=== PATIENT | male | born 1975 | race African-American/Black ===

== ENCOUNTER 2016-12-31 10:41 | Emergency (ER) | payer OTHER ==
[2016-12-31 10:45] VITALS: BP 128/75; PULSE 74; TEMP 97.7; BMI 28.5
[2016-12-31] MEDS ORDERED: KETOROLAC TROMETHAMINE 60 MG/2 ML VIAL ONE (11:46)
[2016-12-31] MEDS ORDERED: KETOROLAC TROMETHAMINE 60 MG/2 ML VIAL IM ONE (11:57)
--- NOTE | 2016-12-31 12:05 | PDOC ---
History of Present Illness - General Chief Complaint: Back Pain Stated Complaint: BACK PAIN Time Seen by Provider: 12/31/16 11:22 History Source: Patient - History of Present Illness Occurred: reports: other Severity: reports: moderate Pain Location: reports: back Past History - Past Medical History Allergies/Adverse Reactions: Allergies Allergy/AdvReac Type Severity Reaction Status Date / Time No Known Allergies Allergy Verified 12/31/16 10:45 Home Medications: Ambulatory Orders Cyclobenzaprine HCl [Flexeril 10 mg] 10 mg PO TID PRN #9 tablet 12/31/16 Ibuprofen [Motrin -] 600 mg PO QID #28 tablet 12/31/16 Other medical history: NONE - Psycho/Social/Smoking Cessation Hx Anxiety: No Suicidal Ideation: No Smoking History: Current every day smoker Number of Cigarettes Smoked Daily: 5 Information on smoking cessation initiated: Yes 'Breaking Loose' booklet given: 12/31/16 Hx Alcohol Use: Yes (SOCIAL) Drug/Substance Use Hx: No Substance Use Type: None Review of Systems - Review of Systems Constitutional: No: Chills, Fever, Unexplained wgt Loss ABD/GI: No: Nausea, Vomiting : No: Dysuria Musculoskeletal: Yes: Back Pain Neurological: No: Numbness, Tingling, Weakness *Physical Exam - Vital Signs Last Vital Signs Temp Pulse Resp BP Pulse Ox 97.7 F 74 20 128/75 100 12/31/16 10:42 12/31/16 10:42 12/31/16 10:42 12/31/16 10:42 12/31/16 10:42 - Physical Exam General Appearance: Yes: Appropriately Dressed. No: Apparent Distress HEENT: positive: Normal Voice Neck: positive: Supple Respiratory/Chest: negative: Respiratory Distress Gastrointestinal/Abdominal: positive: Soft. negative: Tender Musculoskeletal: positive: Normal Inspection, Other (reports pain to mid lower back upon bending). negative: CVA Tenderness, Vertebral Tenderness Extremity: positive: Normal Inspection Integumentary: positive: Dry, Warm Neurologic: positive: Fully Oriented, Alert, Normal Mood/Affect Medical Decision Making - Medical Decision Making 12/31/16 12:15 41 yo male, denies any past medical history here with low back pain. Patient reports non-radiating, sharp lower back pain approximately one week that is mostly constant and exacerbated by certain movements. 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 Taking Advil and using icy hot with no significant relief. Patient denies any specific trauma but does report that few days prior to onset of pain, he went swimming, which he does not usually do. No h/o similar pain. No lower extremity weakness, saddle anesthesia or bowel or bladder incontinence. Denies dysuria, hematuria, flank pain, nausea, vomiting, fever or chills. See exam LBP M/l MSK, i.e strain, spasm, etc No red flags at this time. i.e cauda equina, infxn Stable in ED in NAD and ambulatory c w/ pain control and PMD f/u if pain persists 12/31/16 12:18 *DC/Admit/Observation/Transfer Diagnosis at time of Disposition: Back strain Qualifiers: Encounter type: initial encounter Qualified Code(s): S39.012A - Strain of muscle, fascia and tendon of lower back, initial encounter - Discharge Dispostion Disposition: HOME Condition at time of disposition: Improved - Prescriptions Prescriptions: Cyclobenzaprine HCl [Flexeril 10 mg] 10 mg PO TID PRN #9 tablet PRN Reason: Back Pain Ibuprofen [Motrin -] 600 mg PO QID #28 tablet - Patient Instructions Printed Discharge Instructions: DI for Back Strain or Sprain Additional Instructions: Take medications as directed If pain persists, please see your PMD - Post Discharge Activity Work/School Note: Back to Work
== END 2016-12-31 12:04 | disposition home or self-care (01) ==
LOC: JERFT 10:41
PROC: 3E0233Z Introduction of Anti-inflammatory into Muscle, Percutaneous Approach (ICD-10-PCS; principal; 2016-12-31)
DX: S39.012A Strain of muscle, fascia and tendon of lower back, initial encounter (principal); X50.0XXA Overexertion from strenuous movement or load, initial encounter; Y93.89 Activity, other specified; Y92.811 Bus as the place of occurrence of the external cause; Y99.0 Civilian activity done for income or pay
CPT/HCPCS: 99281-25

== ENCOUNTER 2017-09-09 03:27 | Emergency (ER) | payer OTHER ==
[2017-09-09 03:40] VITALS: BP 132/78; PULSE 84; TEMP 98.7; BMI 27.7
--- NOTE | 2017-09-09 03:47 | PDOC ---
History of Present Illness - General History Source: Patient Exam Limitations: No Limitations - History of Present Illness Initial Comments: 09/09/17 03:53 The patient is a 42 year old male with no significant PMH who presents to the emergency department with left knee pain and swelling beginning approximately 1.5 weeks ago. The patient reports he has recently moved to a third floor apartment with no elevator, which has begun to cause him discomfort. He denies taking medications for pain. The patient denies direct trauma to the lower extremities. 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 He denies prior history of gout. He denies family history of arthritis. PE: Left knee more swollen. Mildly tender. No erythema. No warmth. Normal ROM. No joint laxity. The patient denies chest pain, shortness of breath, headache and dizziness. Denies fever, chills, nausea, vomit, diarrhea and constipation. Denies dysuria, frequency, urgency and hematuria. Allergies: NKA Past surgical history: None reported. Social history: Cigar smoker. No reported alcohol or drug use. PCP: None reported. <Westley Jones - Last Filed: 09/09/17 03:53> - General History Source: Patient <DimaRichie duncan - Last Filed: 09/09/17 19:23> - General Chief Complaint: Pain, Acute Stated Complaint: L KNEE PAIN Time Seen by Provider: 09/09/17 03:41 Past History <Westley Jones - Last Filed: 09/09/17 03:53> - Suicide/Smoking/Psychosocial Hx Smoking History: Never smoked Have you smoked in the past 12 months: No Number of Cigarettes Smoked Daily: 5 Information on smoking cessation initiated: No 'Breaking Loose' booklet given: 12/31/16 Hx Alcohol Use: No Drug/Substance Use Hx: No Substance Use Type: None <Richie Acevedo - Last Filed: 09/09/17 19:23> - Past Medical History Allergies/Adverse Reactions: Allergies Allergy/AdvReac Type Severity Reaction Status Date / Time No Known Allergies Allergy Verified 09/09/17 03:37 Home Medications: Ambulatory Orders Ibuprofen 800 mg PO TID #30 tablet 09/09/17 Review of Systems - Review of Systems Able to Perform ROS?: Yes Comments:: 09/09/17 03:53 CONSTITUTIONAL: Absent: fever, chills, diaphoresis, generalized weakness, malaise, loss of appetite HEENT: Absent: rhinorrhea, nasal congestion, throat pain, throat swelling, difficulty swallowing, mouth swelling, ear pain, eye pain, visual Changes CARDIOVASCULAR: Absent: chest pain, syncope, palpitations, irregular heart rate, lightheadedness , peripheral edema RESPIRATORY: Absent: cough, shortness of breath, dyspnea with exertion, orthopnea, wheezing, stridor, hemoptysis GASTROINTESTINAL: Absent: abdominal pain, abdominal distension, nausea, vomiting, diarrhea, constipation, melena, hematochezia GENITOURINARY: Absent: dysuria, frequency, urgency, hesitancy, hematuria, flank pain, genital pain MUSCULOSKELETAL: (+) Left knee pain and swelling. SKIN: Absent: rash, itching, pallor HEMATOLOGIC/IMMUNOLOGIC: Absent: easy bleeding, easy bruising, lymphadenopathy, frequent infections ENDOCRINE: Absent: unexplained weight gain, unexplained weight loss, heat intolerance, cold intolerance NEUROLOGIC: Absent: headache, focal weakness or paresthesias, dizziness, unsteady gait, seizure, mental status changes, bladder or bowel incontinence PSYCHIATRIC: Absent: anxiety, depression, suicidal or homicidal ideation, hallucinations. <Westley Jones - Last Filed: 09/09/17 03:53> *Physical Exam - Vital Signs Last Vital Signs Temp Pulse Resp BP Pulse Ox 98.7 F 84 18 132/78 100 09/09/17 03:38 09/09/17 03:38 09/09/17 03:38 09/09/17 03:38 09/09/17 03:38 - Physical Exam Comments: 09/09/17 03:53 GENERAL: Well developed, well nourished. Awake and alert. No acute distress. HEENT: Normocephalic, atraumatic. PERRLA, EOMI. No conjunctival pallor. Sclera are non- icteric. Moist mucous membranes. Oropharynx is clear. NECK: Supple. Full ROM. No JVD. Carotid pulses 2+ and symmetric, without bruits. No thyromegaly. No lymphadenopathy. CARDIOVASCULAR: Regular rate and rhythm. No murmurs, rubs, or gallops. Distal pulses are 2+ and symmetric. PULMONARY: No evidence of respiratory distress. Lungs clear to auscultation bilaterally. No wheezing, rales or rhonchi. ABDOMINAL: Soft. Non-tender. Non-distended. No rebound or guarding. No organomegaly. Normoactive bowel sounds. MUSCULOSKELETAL Normal range of motion at all joints. No bony deformities or tenderness. No CVA tenderness. EXTREMITIES: (+) Left knee edematous, more than right. Mildly tender. No erythema. No warmth. Normal ROM. No joint laxity. No cyanosis. No clubbing. No calf tenderness. SKIN: Warm and dry. Normal capillary refill. No rashes. No jaundice. NEUROLOGICAL: Alert, awake, appropriate. Cranial nerves 2-12 intact. No deficits to light touch and temperature in face, upper extremities and lower extremities. No motor deficits in the in face, upper extremities and lower extremities. Normoreflexic in the upper and lower extremities. Normal speech. Toes are downgoing bilaterally. Gait is normal without ataxia. PSYCHIATRIC: Cooperative. Good eye contact. Appropriate mood and affect. <Westley Jones - Last Filed: 09/09/17 03:53> - Vital Signs Last Vital Signs Temp Pulse Resp BP Pulse Ox 98.7 F 84 18 132/78 100 09/09/17 03:38 09/09/17 03:38 09/09/17 03:38 09/09/17 03:38 09/09/17 03:38 <Richie Acevedo - Last Filed: 09/09/17 19:23> Medical Decision Making - Medical Decision Making 09/09/17 19:22 Scribe noteDr. Curtis: The scribe's documentation has been prepared under my direction and personally reviewed by me in its entirery. I confirm that the note above accurately reflects all work, treatment, procedures, and medical decision making performed by me. <Richie Acevedo - Last Filed: 09/09/17 19:23> *DC/Admit/Observation/Transfer - Attestations Scribe Attestion: 09/09/17 03:54 Documentation prepared by Westley Jones, acting as medical pathologist for Richie Acevedo DO. <Westley Jones - Last Filed: 09/09/17 03:53> - Discharge Dispostion Decision to Admit order: No <Richie Acevedo - Last Filed: 09/09/17 19:23> Diagnosis at time of Disposition: Knee pain, left Qualifiers: Chronicity: acute Qualified Code(s): M25.562 - Pain in left knee - Discharge Dispostion Disposition: HOME Condition at time of disposition: Stable - Prescriptions Prescriptions: Ibuprofen 800 mg PO TID #30 tablet - Referrals Referrals: Cabrera Chambers MD [Staff Physician] - Helio Escalante MD [Staff Physician] - - Patient Instructions Printed Discharge Instructions: DI for Knee Pain Additional Instructions: Rest, Ice, elevate left leg. TAke medication as directed. follow up with the doctors referred to you if pain gets worse - Post Discharge Activity Forms/Work/School Notes: Back to Work
[2017-09-09] MEDS ORDERED: IBUPROFEN 400 MG TABLET (FP) PO ONE ×2 (03:48→03:53)
== END 2017-09-09 04:20 | disposition home or self-care (01) ==
LOC: JER 03:27
DX: M25.562 Pain in left knee (principal)
CPT/HCPCS: 73562-TC-LT-FY; 99282-25